=== PATIENT | female | born 1980 | race Caucasian/White ===

== ENCOUNTER 2016-04-26 20:05 | Emergency (ER) | payer OTHER ==
[~2016-04-26 20:05] MED LIST: AMITRIPTYLINE H10 M1 PO; BENTYL 10 MG CA10 MG PO; CYCLOBENZAPRINE5 M2 PO; DIAZEPAM5 MG PO; DILAUDID2 MG PO; FERROUS GLUCON324 MG PO; IBUPROFEN400 M1 PO; MAGNESIUM CITRA PO; PERCOCET 325 MG1 TA2 PO; PERCOCET 5-3251 EACH PO; VALIUM5 M1 PO; ZOFRAN ODT4 MG SL
--- NOTE | 2016-04-26 21:33 | ED MVC/FALL/TRAUMA COMPLAINT ---
History of Present Illness General Chief Complaint: Lower Extremity Problems Stated Complaint: " ?LT KNEE INJURY/LT SIDE ABD PAIN S/P FALL,-LOC" Source: patient Exam Limitations: no limitations Allergies Coded Allergies: latex (Intermediate, RASH 05/26/15) Triage Note: PER PT FELL AT [employer] IF SOMETHING POPPED IN MY L KNEE. NO LOC Triage Nurses Notes Reviewed? yes : No Patient currently breastfeeds: No HPI: This patient is a 35-year-old female who presented to the emergency department today for evaluation of pain status post fall at the grocery store today. The patient reported that there must have been something wet on the floor L she was shopping because she fell forward landing on her left knee and left abdomen. The patient reported that since then she has been having 8 out of 10 pain in her left knee. She reported that, "I felt like something ripped in my knee." The patient also reported that she has been having left-sided abdominal pain in the lower quadrant since the fall. She reported, "I already have a bruise on my butt, and bad pain in my abdomen." This patient does have a history of bariatric surgery. She reported that she vomited once when she was at home and was feeling very nauseous. She denied hitting her head or losing consciousness. The patient denied any chest pain, difficulty breathing, or any other associated symptoms. (AIDA WILDER,CASSY) Vital Signs & Intake/Output Vital Signs & Intake/Output Vital Signs Date Time Temp Pulse Resp B/P Pulse O2 O2 Flow FiO2 Ox Delivery Rate 04/27 0030 98.0 76 18 125/80 98 Room Air Reconcile Medications Cyclobenzaprine HCl 5 MG TABLET 1 TAB PO TIDPRN PRN PAIN Ibuprofen 400 MG TABLET 1 TAB PO Q6P PRN PAIN (Reported) Oxycodone HCl/Acetaminophen (Percocet 5-325 MG Tablet) 5 MG-325 MG TABLET 1 TAB PO 4XDP PRN PAIN TEN...[id number] Oxycodone HCl/Acetaminophen (Percocet 5-325 MG Tablet) 1 EACH TABLET 1 TAB PO TID PRN PAIN (HUGO CANNON,ALBER Esquivel) Past History Travel History Traveled to [place] past 21 day No Medical History Any Pertinent Medical History? see below for history Neurological: HEADACHES EENT: NONE Cardiovascular: NONE Respiratory: NONE Gastrointestinal: LAP BAND Renal: NONE Musculoskeletal: NONE Psychiatric: NONE Endocrine: NONE Blood Disorders: NONE Surgical History Surgical History: hernia repair-incisional, SPLENECTOMY, LAP BAND 2 YEARS AGO - NOW REMOVED, MULTIPLE HERNIA REPAIRS Psychosocial History What is your primary language Uzbek Tobacco Use: Current Not Daily Daily Tobacco Use Amount/Type: =< 4 Cigarettes daily Family History Hx Contributory? No (CASSY PARRA PA-C) Review of Systems Review of Systems Constitutional: Reports: no symptoms. Eyes: Reports: no symptoms. Ears, Nose, Throat, Mouth: Reports: no symptoms. Respiratory: Reports: no symptoms. Cardiovascular: Reports: no symptoms. Gastrointestinal/Abdominal: Reports: see HPI. Genitourinary: Reports: no symptoms. Musculoskeletal: Reports: see HPI. Skin: Reports: no symptoms. Neurological/Psychological: Reports: no symptoms. All Other Systems: Reviewed and Negative (CASSY PARRA PA-C) Physical Exam Physical Exam General Appearance: well developed/nourished, no apparent distress, alert, awake Comments: Well-developed well-nourished person in no acute distress HEENT: Normal EENT exam, head normocephalic, moist mucous membranes Neck: Supple, no midline tenderness Back: Antalgic gait. Normal inspection Cardiovascular: Regular rate and rhythm with no murmurs Respiratory: No respiratory distress. Speaking in full sentences Abdomen: Obese. Soft. Nondistended. Tenderness to palpation in the left lower quadrant with no rebound or guarding. No McBurney's point tenderness. Negative Horta sign. No organomegaly appreciated Left knee: No effusions to the joint spaces. No bony or muscular deformities noted. Range of motion at the knee limited due to pain with flexion. Full range of motion of the hip and ankle. Dorsalis pedis and posterior tibialis pulses 2+ and strong. Tenderness to palpation over the patellar tendon. Negative Lockman's and anterior drawer tests. Positive valgus and varus stress tests Neuro: Alert oriented x3, cranial nerves II through XII grossly intact. Skin: No appreciable rash on exposed skin, skin is warm and dry. Psych: Mood and affect is normal, memory and judgment is normal. (CASSY PARRA PA-C) Core Measures ACS in differential dx? No Severe Sepsis Present: No Septic Shock Present: No (HUGO CANNON,LABER Esquivel) Progress Differential Diagnosis: aoritic dissection, abd injury, C/T/L spine injury, ext injury, ICH, pelvis injury, pnemothorax, spinal cord injury, tendon injury, ligament injury, meniscal injury Hand-Off Endorsed To: ALBER ARIAS MD Endorsed Time: 2299 Pending: CT (AIDA WILDER,CASSY) Plan of Care: Orders Procedure Date/time Status COMPREHENSIVE METABOLIC PANEL 04/26 2131 Complete CBC WITHOUT DIFFERENTIAL 04/26 2131 Complete URINE 04/26 2112 Complete Laboratory Tests 04/26/162139: Anion Gap 10, Estimated GFR > 60, BUN/Creatinine Ratio 17.5, Glucose 105 H, Calcium 9.1, Total Bilirubin 0.6, AST 25, ALT 36, Alkaline Phosphatase 94, Total Protein 6.8, Albumin 4.1, Globulin 2.7, Albumin/Globulin Ratio 1.5, CBC w Diff NO MAN DIFF REQ, RBC 4.33, MCV 86.9, MCH 28.5, RDW 15.2 H, MPV 7.5, Gran % 58.0 , Lymphocytes % 29.9, Monocytes % 9.4 H, Eosinophils % 2.0, Basophils % 0.7, Absolute Granulocytes 6.6 H, Absolute Lymphocytes 3.4, Absolute Monocytes 1.1 H, Absolute Eosinophils 0.2, Absolute Basophils 0.1, PUBS MCHC 32.8 L 04/26/162130: Urine Test NEGATIVE Departure Departure Condition: Stable Referrals: TRESA RIVAS DO (PCP/Family) EVERTON MACE MD Additional Instructions: Please follow-up with the orthopedic physician is information has been provided in this packet. Apply ice or heat the affected area as needed. Avoid any strenuous activity or heavy lifting. Elevate your knee when possible. Departure Forms: Customer Survey General Discharge Information (IADA WILDER,CASSY) Departure Disposition: HOME OR SELF CARE Clinical Impression Primary Impression: Fall Qualifiers: Encounter type: initial encounter Qualified Code: W19.XXXA - Unspecified fall, initial encounter Secondary Impressions: Abdominal pain, Seroma, Strain of left knee Prescriptions: Current Visit Scripts Oxycodone HCl/Acetaminophen (Percocet 5-325 MG Tablet) 1 TAB PO 4XDP PRN PAIN #10 TAB TEN...[id number] PA/OUTSIDE SOLAR SALES CONSULTANT Co-Sign Statement Statement: ED Attending supervision documentation- [x] I saw and evaluated the patient. I have also reviewed all the pertinent lab results and diagnostic results. I agree with the findings and the plan of care as documented in the PA's/OUTSIDE SOLAR SALES CONSULTANT's documentation. To my exam, pt with mild left knee discomfort with lateral stress, small effusion. On abdominal exam, no tenderness to deep palpation. Pt able to ambulate.... Fluid collection in abdomen likely due to recent hernia repair. Pt given deanne bandage, declines crutches. She will follow up with her PMD and surgeon. [] I have reviewed the ED Record and agree with the PA's/OUTSIDE SOLAR SALES CONSULTANT's documentation. [] Additions or exceptions (if any) to the PAs/OUTSIDE SOLAR SALES CONSULTANT's note and plan are summarized below: [] (HUGO CANNON,ALBER Esqiuvel) (HUGO CANNON,ALBER Esquivel)
[2016-04-26 21:53] LABS: ABSOLUTE BASOPHIL COUNT 0.1 /CUMM (0.0-0.2); ABSOLUTE EOSINOPHIL COUNT 0.2 /CUMM (0.0-0.7); ABSOLUTE GRANULOCYTE CT 6.6 /CUMM (1.4-6.5); ABSOLUTE LYMPH COUNT 3.4 /CUMM (1.2-3.4); ABSOLUTE MONOCYTE COUNT 1.1 /CUMM (0.10-0.60); BASOPHIL % 0.7 % (0.0-2.0); HEMATOCRIT 37.6 % (37-47); MEAN CORPUSCULAR HGB 28.5 PG (27.0-31.0); MEAN CORPUSCULAR HGB CONC 32.8 G/DL (33.0-37.0); MEAN CORPUSCULAR VOLUME 86.9 FL (81.0-99.0); MEAN PLATELET VOLUME 7.5 FL (7.4-10.4); PLATELET COUNT 449 /CUMM (130-400); RBC DISTRIBUTION WIDTH 15.2 % (11.5-14.5); RED BLOOD CELL CT 4.33 /CUMM (4.20-5.40); WHITE BLOOD CELL COUNT 11.4 /CUMM (4.8-10.8)
--- NOTE | 2016-04-26 23:29 | CT SCAN REPORT ---
EXAMINATION: CT ABDOMEN AND PELVIS WITH CONTRAST CLINICAL INFORMATION: Abdominal pain after fall. Injury. COMPARISON: 01/06/2016. TECHNIQUE: Contiguous axial thin section helical images of the abdomen and pelvis were performed following the administration of 95 mL of intravenous Optiray 320. The data set was reformatted in the coronal and sagittal planes and reviewed on an independent workstation. DLP: 1096 mGy-cm. FINDINGS: The visualized lung bases are clear. The visualized portions of the heart are unremarkable. The liver is of normal size and attenuation without focal lesions nor intrahepatic biliary ductal dilation. A normal gallbladder is identified. There is no wall thickening or discernible pericholecystic fluid. The spleen, pancreas, adrenal glands are unremarkable. Both kidneys are of normal size and attenuation without hydronephrosis or nephrolithiasis. Following the administration of IV contrast, prompt symmetric nephrograms are displayed. There is no abdominal free fluid. There is neither mesenteric nor retroperitoneal lymphadenopathy. Above the umbilicus, there is an approximately 8.9 x 5.9 x 7.5 cm subcutaneous fluid collection with mild peripheral enhancement. There is a small fat-containing umbilical hernia adjacent to this fluid focus. Normal unopacified loops of small and large bowel are identified. There is no pelvic free fluid. The urinary bladder is unremarkable. There is neither pelvic nor inguinal lymphadenopathy. Bone windows: Neither sclerotic nor lytic bone lesions are identified. 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 No intra-abdominal or pelvic free fluid.
--- NOTE | 2016-04-26 23:52 | CT SCAN REPORT ---
EXAMINATION: CT LOWER EXTREMITY WITHOUT CONTRAST, LEFT CLINICAL INFORMATION: Left knee pain after fall. COMPARISON: None. TECHNIQUE: Contiguous helical images of the left knee were obtained without IV contrast. Multiplanar reconstructions were performed. DLP: 744 mGy-cm. FINDINGS: There are no fractures or dislocations. There is a [id number] knee joint effusion. IMPRESSION: Small to moderate knee joint effusion. No discernible fracture.
[2016-04-27 00:30] VITALS: BP 125/80
[2016-04-27] MEDS ORDERED: PERCOCET 5-3251 EACH PO (00:36)
== END 2016-04-27 00:53 ==
LOC: ERH 20:05
PROVIDERS: Physician Assistant
DX: S86.912A Strain of unspecified muscle(s) and tendon(s) at lower leg level, left leg, initial encounter (principal); S30.1XXA Contusion of abdominal wall, initial encounter; R10.32 Left lower quadrant pain; W01.0XXA Fall on same level from slipping, tripping and stumbling without subsequent striking against object, initial encounter; Y92.512 Supermarket, store or market as the place of occurrence of the external cause
CPT/HCPCS: 74177; 81025; 96361; 96374; 96375; J1885; J2405